=== PATIENT | male | born 1950 | race Caucasian/White ===

== ENCOUNTER 2017-07-15 08:27 | Outpatient (CLI) | payer MEDICARE ==
--- NOTE | 2017-07-15 09:41 | ULT ---
STANDARD BILATERAL RENAL ULTRASOUND: HISTORY: Chronic kidney disease, stage III. COMPARISON: None. FINDINGS: The left kidney measures 11.4 x 5.1 x 4.2 cm without mass, necrosis, or abnormal calcifications. Pre -void urinary bladder volume is 103 mL. The right kidney measures 10.8 x 5.4 x 4.7 cm without mass, necrosis, or abnormal calcifications. The renal cortices are above 1 cm in width. IMPRESSION: 1. No evidence of obstructive uropathy. 2. Normal renal size. POS: [facility]
== END 2017-07-15 08:28 | disposition home or self-care (01) ==
LOC: ULT 08:27
PROVIDERS: ATTEND Urology
DX: N18.3 Chronic kidney disease, stage 3 (moderate) (principal); R32 Unspecified urinary incontinence
CPT/HCPCS: 76770